=== PATIENT | male | born 1980 | race Two or more races ===

== ENCOUNTER 2021-11-30 03:01 | Observation (INO) | payer OTHER ==
[~2021-11-30] VITALS: Ht 190.5 cm; Wt 177.2 kg
[2021-11-30] MEDS ORDERED: LOSA50TA15 PO (03:23)
[2021-11-30] MEDS ORDERED: HYDR25TA10 PO (03:23)
[2021-11-30] MEDS ORDERED: NITROGLYCERIN SUBLINGUAL 0.4 MG BOTTLE OF 25. SL PRN (03:30)
[2021-11-30] MEDS ORDERED: ASPIRIN CHEWABLE 81 MG TABLET. PO ONE (03:30)
[2021-11-30 03:39] LABS: BASO % 0 % (0-3); EOS # 0.2 x10^3/uL (0.0-0.7); EOS % 3 % (0-3); HEMATOCRIT 39.9 % (39.0-53.0); HEMOGLOBIN 13.8 g/dL (13.0-17.5); LYMPH # 2.1 x10^3/uL (1.0-4.8); LYMPH % 25 % (24-48); MEAN CORPUSCULAR HEMOGLOBIN 29 pg (25-35); MEAN CORPUSCULAR HGB CONC 35 g/dL (31-37); MEAN CORPUSCULAR VOLUME 85 fL (79-100); MONO # 0.8 x10^3/uL (0.0-1.1); MONO % 9 % (0-9); NEUT # 5.2 x10^3/uL (1.8-7.7); NEUT % 63 % (31-73); PLATELET COUNT 291 x10^3/uL (140-400); RED CELL DISTRIBUTION WIDTH 13.9 % (11.5-14.5); WHITE BLOOD COUNT 8.3 x10^3/uL (4.0-11.0)
[2021-11-30 03:49] LABS: CALCIUM 8.8 mg/dL (8.5-10.1); CREATININE 1.1 mg/dL (0.7-1.3); GFR 74.5; POTASSIUM 3.6 mmol/L (3.5-5.1)
--- NOTE | 2021-11-30 03:54 | RAD ---
XR HUMERUS_LT 2 VIEWS, XR FOREARM_LEFT 2 VIEWS, XR CHEST 1V Clinical History: Reason: arm pain / Spl. Instructions: / History: One view chest: Technique: AP view of the chest was obtained at 11/30/2021 3:28 AM. Comparison: None. Findings: The cardiomediastinal silhouette is normal. The pulmonary vasculature is normal. The lungs and pleura l margins are clear. Impression: No evidence of an acute cardiopulmonary process. End impression Two-view left forearm: AP lateral views. Visualized osseous structures appear normal. IMPRESSION: No acute findings. End of impression 2 view left humerus: AP lateral views The visualized osseous structures appear normal. IMPRESSION: No acute findings. Electronically signed by: Abhijeet Vasquez III, MD (11/30/2021 3:52 AM) [facility]
--- NOTE | 2021-11-30 05:01 | PHYS DOC ---
Past Medical History Past Surgical History: Tonsillectomy Smoking Status: Former Smoker Alcohol Use: Occasionally General Adult EDM: Chief Complaint: UPPER EXTREMITY PAIN HPI: HPI: Patient is a 41 year old male with a history of hypertension and diabetes who presents to the emergency department tonight with complaints of left arm pain. Patient states he began to have left arm pain about 9:00 tonight. He states the pain has been constant since it began. He states the start of his elbow and radiates down his forearm. He denies any associated chest pain or shortness of breath. He denies any nausea or vomiting. He has had some diaphoresis. He denies ever having pain like this in the past. He has not taken anything at home. Patient severely hypertensive on arrival with a blood pressure 185/122. Review of Systems: Review of Systems: Constitutional: Denies fever or chills. [] Eyes: Denies change in visual acuity. [] HENT: Denies nasal congestion or sore throat. [] Respiratory: Denies cough or shortness of breath. [] Cardiovascular: Denies chest pain or edema. [] GI: Denies abdominal pain, nausea, vomiting, bloody stools or diarrhea. [] : Denies dysuria. [] Musculoskeletal: Denies back pain [] Integument: Denies rash. [] Neurologic: Denies headache, focal weakness or sensory changes. [] Endocrine: Denies polyuria or polydipsia. [] Lymphatic: Denies swollen glands. [] Psychiatric: Denies depression or anxiety. [] Heart Score: C/O Chest Pain: No HEART Score for Chest Pain: HEART Score for Chest Pain Response (Comments) Value History Moderately Suspicious 1 ECG Nonspecific Repolarizatio 1 Age < 45 0 Risk Factors 1 or 2 Risk Factors 1 Troponin < Normal Limit 0 Total 3 Risk Factors: Risk Factors: DM, HTN, obesity Risk Scores: Score 0 - 3: 2.5% MACE over next 6 weeks - Discharge Home Score 4 - 6: 20.3% MACE over next 6 weeks - Admit for Clinical Observation Score 7 - 10: 72.7% MACE over next 6 weeks - Early Invasive Strategies Family History: Family History: Noncontributory Current Medications: Current Medications Medications (Trade) Dose Ordered Sig/Aaron Start Time Stop Time Status Last Admin Dose Admin Aspirin (Aspirin Chewable) 324 mg 1X ONCE 11/30/21 03:30 11/30/21 03:31 DC 11/30/21 03:44 324 MG Nitroglycerin (Nitrostat) 0.4 mg PRN Q5MIN PRN 11/30/21 03:30 12/01/21 03:29 11/30/21 03:48 0.4 MG Allergies: Allergies: Allergies Coded Allergies Type Severity Reaction Last Updated Verified No Known Drug Allergies 11/30/21 No Physical Exam: PE: Constitutional: Well developed, well nourished, no acute distress, non-toxic appearance. [] HENT: Normocephalic, atraumatic, bilateral external ears normal, oropharynx moist, no oral exudates, nose normal. [] Eyes: PERRLA, EOMI, conjunctiva normal, no discharge. [] Neck: Normal range of motion, no tenderness, supple, no stridor. [] Cardiovascular:Heart rate regular rhythm, no murmur [] Lungs & Thorax: Bilateral breath sounds clear to auscultation [] Abdomen: Bowel sounds normal, soft, no tenderness, no masses, no pulsatile masses. [] Skin: Warm, dry, no erythema, no rash. [] Back: No tenderness, no CVA tenderness. [] Extremities: No pain with range of motion. 2+ distal pulses. Median, radial and ulnar nerves are intact. No tenderness, no cyanosis, no clubbing, ROM intact, no edema. [] Neurologic: Alert and oriented X 3, normal motor function, normal sensory function, no focal deficits noted. [] Psychologic: Affect normal, judgement normal, mood normal. [] Current Patient Data: Labs: Laboratory Tests Test 11/30/21 03:29 White Blood Count 8.3 x10^3/uL (4.0-11.0) Red Blood Count 4.70 x10^6/uL (4.30-5.70) Hemoglobin 13.8 g/dL (13.0-17.5) Hematocrit 39.9 % (39.0-53.0) Mean Corpuscular Volume 85 fL (79-100) Mean Corpuscular Hemoglobin 29 pg (25-35) Mean Corpuscular Hemoglobin Concent 35 g/dL (31-37) Red Cell Distribution Width 13.9 % (11.5-14.5) Platelet Count 291 x10^3/uL (140-400) Neutrophils (%) (Auto) 63 % (31-73) Lymphocytes (%) (Auto) 25 % (24-48) Monocytes (%) (Auto) 9 % (0-9) Eosinophils (%) (Auto) 3 % (0-3) Basophils (%) (Auto) 0 % (0-3) Neutrophils # (Auto) 5.2 x10^3/uL (1.8-7.7) Lymphocytes # (Auto) 2.1 x10^3/uL (1.0-4.8) Monocytes # (Auto) 0.8 x10^3/uL (0.0-1.1) Eosinophils # (Auto) 0.2 x10^3/uL (0.0-0.7) Basophils # (Auto) 0.0 x10^3/uL (0.0-0.2) Sodium Level 141 mmol/L (136-145) Potassium Level 3.6 mmol/L (3.5-5.1) Chloride Level 103 mmol/L (98-107) Carbon Dioxide Level 29 mmol/L (21-32) Anion Gap 9 (6-14) Blood Urea Nitrogen 14 mg/dL (8-26) Creatinine 1.1 mg/dL (0.7-1.3) Estimated GFR (Cockcroft-Gault) 74.5 Glucose Level 191 mg/dL (70-99) H Calcium Level 8.8 mg/dL (8.5-10.1) Troponin I High Sensitivity 10 ng/L (4-75) DY-Grd-V-Type Natriuretic Peptide 13 pg/mL (0-124) Laboratory Tests 11/30/21 03:29 Laboratory Tests 11/30/21 03:29 Vital Signs: Vital Signs Date Time Temp Pulse Resp B/P (MAP) Pulse Ox O2 Delivery O2 Flow Rate FiO2 11/30/21 04:15 84 20 143/88 (106) 96 11/30/21 03:53 Room Air 11/30/21 03:08 98.0 98.0 EKG: EKG: EKG shows normal sinus rhythm with a rate of 77. There is a left axis deviation. QT interval is prolonged. Otherwise intervals are normal. No evidence of any acute ischemia or infarction. EKG was reviewed and interpreted by myself. [] Radiology/Procedures: Radiology/Procedures: XR HUMERUS_LT 2 VIEWS, XR FOREARM_LEFT 2 VIEWS, XR CHEST 1V Clinical History: Reason: arm pain / Spl. Instructions: / History: One view chest: Technique: AP view of the chest was obtained at 11/30/2021 3:28 AM. Comparison: None. Findings: The cardiomediastinal silhouette is normal. The pulmonary vasculature is normal. The lungs and pleural margins are clear. Impression: No evidence of an acute cardiopulmonary process. End impression Two-view left forearm: AP lateral views. Visualized osseous structures appear normal. IMPRESSION: No acute findings. End of impression 2 view left humerus: AP lateral views The visualized osseous structures appear normal. IMPRESSION: No acute findings. Electronically signed by: Abhijeet Vasquez III, MD (11/30/2021 3:52 AM) [facility] Impression: Angina Hypertension Diabetes Course & Med Decision Making: Course & Med Decision Making Patient remained hemodynamically stable in the emergency department. He was evaluated at the bedside with a physical exam. Patient was severely hypertensive upon arrival. He did receive 1 dose of nitroglycerin with some improvement of his blood pressure. His left arm pain also improved somewhat. EKG shows no evidence of any acute ischemic changes. His chest x-ray is clear. Plain films of the left arm showed no evidence of any acute osseous abnormalities. Basic labs obtained unremarkable except for an elevated glucose. His first troponin is negative. Given the patient's risk factors and this pain I am concerned that this is an anginal equivalent. I think it be prudent to admit him to the hospital for stress test. Given this I have discussed patient with hospitalist will admit to the hospitalist service for stress this placido Barone Disclaimer: Lizabeth Disclaimer: This electronic medical record was generated, in whole or in part, using a voice recognition dictation system. Departure Departure Impression: Primary Impression: Angina pectoris Additional Impressions: Hypertensive urgency Diabetes Disposition: ADMITTED INPATIENT Condition: IMPROVED Referrals: UNKNOWN PCP NAME (PCP) DISHA KNIGHT MD November 30, 2021 05:01
[2021-11-30 06:27] VITALS: BP 160/103
[2021-11-30] MEDS ORDERED: hydrALAZINE 20 MG/ML VIAL. IVP PRN (07:00)
[2021-11-30] MEDS ORDERED: DEXTROSE 50% 25 GM / 50ML DISP.SYRIN. IV PRN (07:00)
[2021-11-30] MEDS ORDERED: ACETAMINOPHEN 325 MG TABLET. PO PRN (07:00)
[2021-11-30] MEDS ORDERED: ONDANSETRON PF 4 MG/2 ML VIAL. IVP PRN (07:00)
--- NOTE | 2021-11-30 07:08 | PDOC1 ---
History and Physical Date of Admission Date of Admission DATE: 11/30/21 TIME: 06:56 Identification/Chief Complaint Chief Complaint Left arm pain Source Source: Patient History of Present Illness History of Present Illness Mr Moran is a 41 w/ PMHx prediabetes, HTN, BEATRICE not on CPAP, former smoker who presents to the ED c/o left arm pain. Patient states he began to have left arm pain about 9:00 tonight. He states the pain has been constant since it began. He states the start of his elbow and radiates down his forearm. He denies any associated chest pain or shortness of breath. He denies any nausea or vomiting. He has had some diaphoresis. He denies ever having pain like this in the past. He has not taken anything at home. Patient severely hypertensive on arrival with a blood pressure 185/122. 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 Past Medical History Cardiovascular: HTN Endocrine: Diabetes Past Surgical History Past Surgical History: Tonsillectomy Family History Family History: Hypertension Social History Smoke: Quit ALCOHOL: rare Drugs: None Current Problem List Problem List Problems Medical Problems: (1) Diabetes Status: Acute (2) Hypertensive urgency Status: Acute Current Medications Current Medications Current Medications Aspirin (Aspirin Chewable) 324 mg 1X ONCE PO Last administered on 11/30/21at 03:44; Start 11/30/21 at 03:30; Stop 11/30/21 at 03:31; Status DC Nitroglycerin (Nitrostat) 0.4 mg PRN Q5MIN PRN SL CP RATING > 1/10 Last administered on 11/30/21at 03:48; Start 11/30/21 at 03:30; Stop 12/01/21 at 03:29 Active Scripts Active Reported Losartan Potassium 50 Mg Tablet 100 Mg PO DAILY Hydrochlorothiazide 25 Mg Tablet 25 Mg PO Allergies Allergies: Coded Allergies: No Known Drug Allergies (Unverified , 11/30/21) ROS General: No: Chills, Night Sweats, Fatigue, Malaise, Appetite, Other PSYCHOLOGICAL ROS: No: Anxiety, Behavioral Disorder, Concentration difficultie, Decreased libido, Depression, Disorientation, Hallucinations, Hostility, Irritablity, Memory difficulties, Mood Swings, Obsessive thoughts, Physical abuse, Sexual abuse, Sleep disturbances, Suicidal ideation, Other Eyes: No Blurry vision, No Decreased vision, No Double vision, No Dry eyes, No Excessive tearing, No Eye Pain, No Itchy Eyes, No Loss of vision, No Photophobia, No Scotomata, No Uses contacts, No Uses glasses, No Other HEENT: No: Heacaches, Visual Changes, Hearing change, Nasal congestion, Nasal discharge, Oral lesions, Sinus pain, Sore Throat, Epistaxis, Sneezing, Snoring, Tinnitus, Vertigo, Vocal changes, Other ALLERGY AND IMMUNOLOGY: No: Hives, Insect Bite Sensitivity, Itchy/Watery Eyes, Nasal Congestion, Post Nasal Drip, Seasonal Allergies, Other Hematological and Lymphatic: No: Bleeding Problems, Blood Clots, Blood Transfusions, Brusing, Night Sweats, Pallor, Swollen Lymph Nodes, Other ENDOCRINE: No: Breast Changes, Galactorrhea, Hair Pattern Changes, Hot Flashes, Malaise/lethargy, Mood Swings, Palpitations, Polydipsia/polyuria, Skin Changes, Temperature Intolerance, Unexpected Weight Changes, Other Genitourinary: No Dysuria, No Frequency, No Incontinence, No Hematuria, No Retention, No Discharge, No Urgency, No Pain, No Flank Pain, No Other, No , No , No , No , No , No , No Musculoskeletal: Yes Joint Pain, Yes Joint Stiffness; No Gait Disturbance, No Joint Swelling, No Muscle Pain, No Muscular Weakness, No Pain In:, No Swelling In:, No Other Neurological: No Behavorial Changes, No Bowel/Bladder ControlChng, No Confusion, No Dizziness, No Gait Disturbance, No Headaches, No Impaired Coord/balance, No Memory Loss, No Numbness/Tingling, No Seizures, No Speech Problems, No Tremors, No Visual Changes, No Weakness, No Other Skin: No Dry Skin, No Eczema, No Hair Changes, No Lumps, No Mole Changes, No Mottling, No Nail Changes, No Pruritus, No Rash, No Skin Lesion Changes, No Other, No Acne Physical Exam General: Alert, Oriented X3, Cooperative, No acute distress HEENT: Atraumatic, PERRLA, EOMI, Mucous membr. moist/pink Lungs: Clear to auscultation, Normal air movement Heart: S1S2, RRR, no thrills, no rubs, no gallops, no murmurs Abdomen: Normal bowel sounds, Soft, No tenderness, No hepatosplenomegaly, No masses Extremities: No clubbing, No cyanosis, No edema, Normal pulses, Other (Left olecranon process pain on palpation) Skin: No rashes, No breakdown, No significant lesion Neuro: Normal gait, Normal speech, Strength at 5/5 X4 ext, Normal tone, Sensation intact, Cranial nerves 3-12 NL, Reflexes 2+ Psych/Mental Status: Mental status NL, Mood NL Vitals Vitals Vital Signs Date Time Temp Pulse Resp B/P (MAP) Pulse Ox O2 Delivery O2 Flow Rate FiO2 11/30/21 06:27 98.3 74 18 160/103 (122) 98 Room Air 98.3 Labs Labs Laboratory Tests Test 11/30/21 03:29 White Blood Count 8.3 x10^3/uL (4.0-11.0) Red Blood Count 4.70 x10^6/uL (4.30-5.70) Hemoglobin 13.8 g/dL (13.0-17.5) Hematocrit 39.9 % (39.0-53.0) Mean Corpuscular Volume 85 fL (79-100) Mean Corpuscular Hemoglobin 29 pg (25-35) Mean Corpuscular Hemoglobin Concent 35 g/dL (31-37) Red Cell Distribution Width 13.9 % (11.5-14.5) Platelet Count 291 x10^3/uL (140-400) Neutrophils (%) (Auto) 63 % (31-73) Lymphocytes (%) (Auto) 25 % (24-48) Monocytes (%) (Auto) 9 % (0-9) Eosinophils (%) (Auto) 3 % (0-3) Basophils (%) (Auto) 0 % (0-3) Neutrophils # (Auto) 5.2 x10^3/uL (1.8-7.7) Lymphocytes # (Auto) 2.1 x10^3/uL (1.0-4.8) Monocytes # (Auto) 0.8 x10^3/uL (0.0-1.1) Eosinophils # (Auto) 0.2 x10^3/uL (0.0-0.7) Basophils # (Auto) 0.0 x10^3/uL (0.0-0.2) Sodium Level 141 mmol/L (136-145) Potassium Level 3.6 mmol/L (3.5-5.1) Chloride Level 103 mmol/L (98-107) Carbon Dioxide Level 29 mmol/L (21-32) Anion Gap 9 (6-14) Blood Urea Nitrogen 14 mg/dL (8-26) Creatinine 1.1 mg/dL (0.7-1.3) Estimated GFR (Cockcroft-Gault) 74.5 Glucose Level 191 mg/dL (70-99) Calcium Level 8.8 mg/dL (8.5-10.1) Troponin I High Sensitivity 10 ng/L (4-75) JS-Fvq-Z-Type Natriuretic Peptide 13 pg/mL (0-124) Laboratory Tests Test 11/30/21 03:29 White Blood Count 8.3 x10^3/uL (4.0-11.0) Red Blood Count 4.70 x10^6/uL (4.30-5.70) Hemoglobin 13.8 g/dL (13.0-17.5) Hematocrit 39.9 % (39.0-53.0) Mean Corpuscular Volume 85 fL (79-100) Mean Corpuscular Hemoglobin 29 pg (25-35) Mean Corpuscular Hemoglobin Concent 35 g/dL (31-37) Red Cell Distribution Width 13.9 % (11.5-14.5) Platelet Count 291 x10^3/uL (140-400) Neutrophils (%) (Auto) 63 % (31-73) Lymphocytes (%) (Auto) 25 % (24-48) Monocytes (%) (Auto) 9 % (0-9) Eosinophils (%) (Auto) 3 % (0-3) Basophils (%) (Auto) 0 % (0-3) Neutrophils # (Auto) 5.2 x10^3/uL (1.8-7.7) Lymphocytes # (Auto) 2.1 x10^3/uL (1.0-4.8) Monocytes # (Auto) 0.8 x10^3/uL (0.0-1.1) Eosinophils # (Auto) 0.2 x10^3/uL (0.0-0.7) Basophils # (Auto) 0.0 x10^3/uL (0.0-0.2) Sodium Level 141 mmol/L (136-145) Potassium Level 3.6 mmol/L (3.5-5.1) Chloride Level 103 mmol/L (98-107) Carbon Dioxide Level 29 mmol/L (21-32) Anion Gap 9 (6-14) Blood Urea Nitrogen 14 mg/dL (8-26) Creatinine 1.1 mg/dL (0.7-1.3) Estimated GFR (Cockcroft-Gault) 74.5 Glucose Level 191 mg/dL (70-99) Calcium Level 8.8 mg/dL (8.5-10.1) Troponin I High Sensitivity 10 ng/L (4-75) SD-Shv-W-Type Natriuretic Peptide 13 pg/mL (0-124) Images Images HUMERUS LEFT XR HUMERUS_LT 2 VIEWS, XR FOREARM_LEFT 2 VIEWS, XR CHEST 1V Clinical History: Reason: arm pain / Spl. Instructions: / History: One view chest: Technique: AP view of the chest was obtained at 11/30/2021 3:28 AM. Comparison: None. Findings: The cardiomediastinal silhouette is normal. The pulmonary vasculature is normal. The lungs and pleural margins are clear. Impression: No evidence of an acute cardiopulmonary process. End impression Two-view left forearm: AP lateral views. Visualized osseous structures appear normal. IMPRESSION: No acute findings. End of impression 2 view left humerus: AP lateral views The visualized osseous structures appear normal. IMPRESSION: No acute findings. VTE Prophylaxis Ordered VTE Prophylaxis Devices: No VTE Pharmacological Prophylaxi: No Assessment/Plan Assessment/Plan Left arm pain -likely olecranon bursitis will use topical Voltaren decrease repetitive movements. HTN urgency -continue home meds Prediabetes -metformin BEATRICE not on CPAP -not covered by his insurance former smoker Abnormal EKG - concerning for pulmonary HTN, with BEATRICE likely this is etiology. Cardiology consulted will have echocardiogram and likely have outpatient follow- up FEN - cardiac diet PPX - ambulatory FULL CODE DIspo - observation Justifications for Admission Other Justification JUANCARLOS ZARAGOZA MD November 30, 2021 07:08
[2021-11-30] MEDS: INSULIN LISPRO 300 UNITS/3 ML VIAL. SQ SCH ×2 (07:30→11:30)
--- NOTE | 2021-11-30 08:52 | PDOC2 ---
CARDIAC CONSULT DATE OF CONSULT Date of Consult DATE: 11/30/21 TIME: 08:50 REASON FOR CONSULT Reason for Consult: stress test REFERRING PHYSICIAN Referring Physician: Mitesh SOURCE Source: Chart review, Patient HISTORY OF PRESENT ILLNESS HISTORY OF PRESENT ILLNESS This is a pleasant 41 yo male admitted for complains of left elbow pain. No chest pain, no SOA or palpitations. No nausea or vomiting. His elbow pain felt l constance neevs horse all the wasy to his forearm and denies any recent heavy lifting. No prior hx of CAD, VTE or arrhythmias. He has HTN and takes losartan.He also has BEATRICE and waiting for his CPAP. He is here from [place] trying to relocate and looking for houses. PAST MEDICAL HISTORY Past Medical History HTN, BEATRICE PAST SURGICAL HISTORY Past Surgical History: No pertinent history FAMILY HISTORY Family History: Heart Disease (father) SOCIAL HISTORY Smoke: Quit ALCOHOL: occassional Drugs: None Lives: with Family CURRENT MEDICATIONS CURRENT MEDICATIONS Current Medications Medications (Trade) Dose Ordered Sig/Aaron Route PRN Reason Start Time Stop Time Status Last Admin Dose Admin Aspirin (Aspirin Chewable) 324 mg 1X ONCE PO 11/30/21 03:30 11/30/21 03:31 DC 11/30/21 03:44 Nitroglycerin (Nitrostat) 0.4 mg PRN Q5MIN PRN SL CP RATING > 1/10 11/30/21 03:30 12/01/21 03:29 11/30/21 03:48 ALLERGIES ALLERGIES: Coded Allergies: No Known Drug Allergies (Unverified , 11/30/21) ROS Review of System 14 point ROS evlauated with pertinent positives noted per HPI PHYSICAL EXAM General: Alert, Oriented X3, Cooperative, No acute distress HEENT: Atraumatic, Mucous membr. moist/pink Lungs: Clear to auscultation, Normal air movement Heart: Regular rate (SR), Normal S1, Normal S2, No murmurs Abdomen: Soft, No tenderness, Other (obese) Extremities: No cyanosis, No edema Skin: No breakdown, No significant lesion Neuro: Normal speech, Sensation intact Psych/Mental Status: Mental status NL, Mood NL MUSCULOSKELETAL: Full range of motion without pain VITALS/I&O VITALS/I&O: Vital Signs Date Time Temp Pulse Resp B/P (MAP) Pulse Ox O2 Delivery O2 Flow Rate FiO2 11/30/21 06:27 98.3 74 18 160/103 (122) 98 Room Air 98.3 LABS Lab: Laboratory Tests Test 11/30/21 03:29 11/30/21 06:14 11/30/21 08:07 White Blood Count 8.3 x10^3/uL (4.0-11.0) Red Blood Count 4.70 x10^6/uL (4.30-5.70) Hemoglobin 13.8 g/dL (13.0-17.5) Hematocrit 39.9 % (39.0-53.0) Mean Corpuscular Volume 85 fL (79-100) Mean Corpuscular Hemoglobin 29 pg (25-35) Mean Corpuscular Hemoglobin Concent 35 g/dL (31-37) Red Cell Distribution Width 13.9 % (11.5-14.5) Platelet Count 291 x10^3/uL (140-400) Neutrophils (%) (Auto) 63 % (31-73) Lymphocytes (%) (Auto) 25 % (24-48) Monocytes (%) (Auto) 9 % (0-9) Eosinophils (%) (Auto) 3 % (0-3) Basophils (%) (Auto) 0 % (0-3) Neutrophils # (Auto) 5.2 x10^3/uL (1.8-7.7) Lymphocytes # (Auto) 2.1 x10^3/uL (1.0-4.8) Monocytes # (Auto) 0.8 x10^3/uL (0.0-1.1) Eosinophils # (Auto) 0.2 x10^3/uL (0.0-0.7) Basophils # (Auto) 0.0 x10^3/uL (0.0-0.2) Sodium Level 141 mmol/L (136-145) Potassium Level 3.6 mmol/L (3.5-5.1) Chloride Level 103 mmol/L (98-107) Carbon Dioxide Level 29 mmol/L (21-32) Anion Gap 9 (6-14) Blood Urea Nitrogen 14 mg/dL (8-26) Creatinine 1.1 mg/dL (0.7-1.3) Estimated GFR (Cockcroft-Gault) 74.5 Glucose Level 191 mg/dL (70-99) H Calcium Level 8.8 mg/dL (8.5-10.1) Troponin I High Sensitivity 10 ng/L (4-75) 9 ng/L (4-75) PZ-Jdo-U-Type Natriuretic Peptide 13 pg/mL (0-124) Glucose (Fingerstick) 132 mg/dL (70-99) H Laboratory Tests 11/30/21 03:29 Laboratory Tests 11/30/21 03:29 ASSESSMENT/PLAN ASSESSMENT/PLAN 1. Left arm pain: MSK, noncardiac 2. HTN urgency 3. Morbid obesity 4. BEATRICE: waiting for home CPAP 5. Hyperglycemia Recommendations 1. EKG is abnormal so will obtain TTE. FLP, A1C 2. Continue losartana dn add HCTZ 3. Lifestyle modification MITUL HENDERSON APRN November 30, 2021 08:52
[2021-11-30] MEDS ORDERED: LOSARTAN POTASSIUM 50 MG TABLET. PO SCH (09:00)
[2021-11-30] MEDS ORDERED: hydroCHLOROthiazide 12.5 MG TABLET PO ONE (09:45)
[2021-11-30] MEDS ORDERED: DICLOFENAC SODIUM 1% TOPICAL GEL 100GM TUBE. TP SCH (10:00)
[2021-11-30 10:12] LABS: CHOLESTEROL/HDL RATIO 3.8
[2021-11-30 11:00] VITALS: BP 161/99
--- NOTE | 2021-11-30 12:50 | PDOC3 ---
Discharge Summary Visit Information Final Diagnosis Problems Medical Problems: (1) Diabetes Status: Acute (2) Hypertensive urgency Status: Acute Brief Hospital Course Allergies Allergies Coded Allergies Type Severity Reaction Last Updated Verified No Known Drug Allergies 11/30/21 No Vital Signs Vital Signs Date Time Temp Pulse Resp B/P (MAP) Pulse Ox O2 Delivery O2 Flow Rate FiO2 11/30/21 11:00 97.7 68 18 161/99 (119) 96 Room Air 97.7 Lab Results Laboratory Tests Test 11/30/21 03:29 11/30/21 06:14 11/30/21 08:07 11/30/21 09:30 White Blood Count 8.3 x10^3/uL (4.0-11.0) Red Blood Count 4.70 x10^6/uL (4.30-5.70) Hemoglobin 13.8 g/dL (13.0-17.5) Hematocrit 39.9 % (39.0-53.0) Mean Corpuscular Volume 85 fL (79-100) Mean Corpuscular Hemoglobin 29 pg (25-35) Mean Corpuscular Hemoglobin Concent 35 g/dL (31-37) Red Cell Distribution Width 13.9 % (11.5-14.5) Platelet Count 291 x10^3/uL (140-400) Neutrophils (%) (Auto) 63 % (31-73) Lymphocytes (%) (Auto) 25 % (24-48) Monocytes (%) (Auto) 9 % (0-9) Eosinophils (%) (Auto) 3 % (0-3) Basophils (%) (Auto) 0 % (0-3) Neutrophils # (Auto) 5.2 x10^3/uL (1.8-7.7) Lymphocytes # (Auto) 2.1 x10^3/uL (1.0-4.8) Monocytes # (Auto) 0.8 x10^3/uL (0.0-1.1) Eosinophils # (Auto) 0.2 x10^3/uL (0.0-0.7) Basophils # (Auto) 0.0 x10^3/uL (0.0-0.2) Sodium Level 141 mmol/L (136-145) Potassium Level 3.6 mmol/L (3.5-5.1) Chloride Level 103 mmol/L (98-107) Carbon Dioxide Level 29 mmol/L (21-32) Anion Gap 9 (6-14) Blood Urea Nitrogen 14 mg/dL (8-26) Creatinine 1.1 mg/dL (0.7-1.3) Estimated GFR (Cockcroft-Gault) 74.5 Glucose Level 191 mg/dL (70-99) Calcium Level 8.8 mg/dL (8.5-10.1) Troponin I High Sensitivity 10 ng/L (4-75) 9 ng/L (4-75) 8 ng/L (4-75) BL-Tsz-[id number]-Type Natriuretic Peptide 13 pg/mL (0-124) Glucose (Fingerstick) 132 mg/dL (70-99) Triglycerides Level 99 mg/dL (0-150) Cholesterol Level 165 mg/dL (0-200) LDL Cholesterol, Calculated 102 mg/dL (0-100) VLDL Cholesterol, Calculated 20 mg/dL (0-40) Non-HDL Cholesterol Calculated 122 mg/dL (0-129) HDL Cholesterol 43 mg/dL (40-60) Cholesterol/HDL Ratio 3.8 Test 11/30/21 12:07 Glucose (Fingerstick) 119 mg/dL (70-99) Laboratory Tests Test 11/30/21 03:29 11/30/21 06:14 11/30/21 08:07 11/30/21 09:30 White Blood Count 8.3 x10^3/uL (4.0-11.0) Red Blood Count 4.70 x10^6/uL (4.30-5.70) Hemoglobin 13.8 g/dL (13.0-17.5) Hematocrit 39.9 % (39.0-53.0) Mean Corpuscular Volume 85 fL (79-100) Mean Corpuscular Hemoglobin 29 pg (25-35) Mean Corpuscular Hemoglobin Concent 35 g/dL (31-37) Red Cell Distribution Width 13.9 % (11.5-14.5) Platelet Count 291 x10^3/uL (140-400) Neutrophils (%) (Auto) 63 % (31-73) Lymphocytes (%) (Auto) 25 % (24-48) Monocytes (%) (Auto) 9 % (0-9) Eosinophils (%) (Auto) 3 % (0-3) Basophils (%) (Auto) 0 % (0-3) Neutrophils # (Auto) 5.2 x10^3/uL (1.8-7.7) Lymphocytes # (Auto) 2.1 x10^3/uL (1.0-4.8) Monocytes # (Auto) 0.8 x10^3/uL (0.0-1.1) Eosinophils # (Auto) 0.2 x10^3/uL (0.0-0.7) Basophils # (Auto) 0.0 x10^3/uL (0.0-0.2) Sodium Level 141 mmol/L (136-145) Potassium Level 3.6 mmol/L (3.5-5.1) Chloride Level 103 mmol/L (98-107) Carbon Dioxide Level 29 mmol/L (21-32) Anion Gap 9 (6-14) Blood Urea Nitrogen 14 mg/dL (8-26) Creatinine 1.1 mg/dL (0.7-1.3) Estimated GFR (Cockcroft-Gault) 74.5 Glucose Level 191 mg/dL (70-99) Calcium Level 8.8 mg/dL (8.5-10.1) Troponin I High Sensitivity 10 ng/L (4-75) 9 ng/L (4-75) 8 ng/L (4-75) DQ-Ohm-R-Type Natriuretic Peptide 13 pg/mL (0-124) Glucose (Fingerstick) 132 mg/dL (70-99) Triglycerides Level 99 mg/dL (0-150) Cholesterol Level 165 mg/dL (0-200) LDL Cholesterol, Calculated 102 mg/dL (0-100) VLDL Cholesterol, Calculated 20 mg/dL (0-40) Non-HDL Cholesterol Calculated 122 mg/dL (0-129) HDL Cholesterol 43 mg/dL (40-60) Cholesterol/HDL Ratio 3.8 Test 11/30/21 12:07 Glucose (Fingerstick) 119 mg/dL (70-99) Brief Hospital Course Mr. Moran is a 41 old [sex] who presented with [ ] Discharge Information Scheduled Losartan Potassium (Losartan Potassium) 50 Mg Tablet, 100 MG PO DAILY for , (Reported) Entered as Reported by: PETE ZHOU RN on 11/30/21 032 Last Taken: Unknown Dose on 11/29/212099 Last Action: Continued on 11/30/21700 by JUANCARLOS ZARAGOZA MD Miscellaneous Medications Hydrochlorothiazide (Hydrochlorothiazide) 25 Mg Tablet, 25 MG PO, (Reported) Entered as Reported by: PETE ZHOU RN on 11/30/21322 Last Taken: Unknown Dose on 11/29/212099 Last Action: New Order on 11/30/21322 by RAFIA AGUILA CHRISTOPHER S MD November 30, 2021 12:50
--- NOTE | 2021-11-30 13:00 | NUR ---
Pt anxious and eager to discharge d/t long drive back home. Educated pt that we are waiting on ECHO to be completed. Pt is refusing and wanting to leave prior. notified and is ok with discharging pt and having him follow up outpt to get ECHO completed. Discharge order placed. IV removed. Educated pt on discharge instructions and follow ups, medications. Pt and deny any questions or concerns at this time. Pt ambulated off unit safely with staff member.
[2021-12-01 02:09] LABS: HEMOGLOBIN A1C 6.4 % (4.8-5.6)
[2021-12-01] MEDS ORDERED: hydroCHLOROthiazide 12.5 MG TABLET PO SCH (09:00)
== END 2021-11-30 13:28 | disposition home or self-care (01) ==
LOC: ER 03:01 → 6 SOUTH 04:55 → INTOOBSV 04:55
PROVIDERS: ADMIT Internal Medicine; ATTEND Internal Medicine
DX: I20.9 Angina pectoris, unspecified (principal); I16.0 Hypertensive urgency; I10 Essential (primary) hypertension; E11.65 Type 2 diabetes mellitus with hyperglycemia; I44.4 Left anterior fascicular block; G47.33 Obstructive sleep apnea (adult) (pediatric); E66.01 Morbid (severe) obesity due to excess calories; R94.31 Abnormal electrocardiogram [ECG] [EKG]; M70.20 Olecranon bursitis, unspecified elbow; Z87.891 Personal history of nicotine dependence; Z90.49 Acquired absence of other specified parts of digestive tract; Z79.899 Other long term (current) drug therapy; Z98.890 Other specified postprocedural states; Z79.82 Long term (current) use of aspirin; Z68.42 Body mass index [BMI] 45.0-49.9, adult
CPT/HCPCS: 36415; 71045; 73060; 73090; 80048; 80061; 82962; 83036; 83880; 84484; 85025; 99285; G0378; J1815; G0379